=== PATIENT | female | born 1955 | race Two or more races ===

== ENCOUNTER → 2019-10-12 | Outpatient (CLI) | payer OTHER | END | disposition home or self-care (01) | LOC: LABWHC1 10:34 | PROVIDERS: ATTEND Internal Medicine | DX: N95.1 Menopausal and female climacteric states (principal); E55.9 Vitamin D deficiency, unspecified | CPT/HCPCS: 36415; 82306; 84140 ==

== ENCOUNTER → 2020-03-06 | Outpatient (CLI) | payer OTHER ==
--- NOTE | 2020-03-06 17:39 | ECHOF ---
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 MEASUREMENTS -------- HEIGHT: 160.0 cm WEIGHT: 56.7 kg BP: IVSd: 0.8 cm (0.6 - 1.1) LVIDd: 3.7 cm (3.9 - 5.3) LVPWd: 1.0 cm (0.6 - 1.1) EDV(Teich): 58 ml IVSs: 1.2 cm LVIDs: 2.2 cm LVPWs: 1.5 cm %IVS Thck: 46 % ESV(Teich): 17 ml EF(Teich): 71 % %FS: 39 % SV(Teich): 41 ml RVIDd: 3.1 cm (< 3.3) IVC: 18.22 mm LALs A4C: 4.0 cm LAAs A4C: 13.8 cm LAESV A-L A4C: 40 ml LAESV MOD A4C: 39 ml LALs A2C: 5.6 cm LAAs A2C: 15.4 cm LAESV A-L A2C: 36 ml LAESV MOD A2C: 33 ml LAESV(A-L): 45 ml LAESV Index (A-L): 28.23 ml/m Ao Diam: 2.9 cm (2.0 - 3.7) LA Diam: 2.9 cm (2.7 - 3.8) AV Cusp: 1.9 cm (1.5 - 2.6) EPSS: 0.3 cm AV Vmax: 1.38 m/s AV maxP.62 mmHg AR Vmax: 2.06 m/s AR maxP.01 mmHg AR PHT: 533 ms AR Dec Time: 1837 ms AR Dec [place]: 1.1 m/s TR Vmax: 1.53 m/s TR maxP.31 mmHg RAP: 5.00 mmHg RVSP: 14.31 mmHg MV EF SLOPE: 97.21 mm/s (70 - 150) MV EXCURSION: 14.97 mm (> 18.000) FINDINGS -------- This was a technically good study. The left ventricular size is normal. Left ventricular wall thickness is normal. Overall left vent ricular systolic function is normal with, an EF between 55 - 60 %. The right ventricle is normal in size. The left atrial size is normal. Normal LA size by volume 22+/-6 ml/m2. The right atrial size is normal. Interatrial and interventricular septum intact. Aortic valve is trileaflet and is mildly thickened. Trace to mild aortic regurgitation. Peak/mean gradient across the Aortic Valve is {AV maxPG} / {AV meanPG}. The mitral valve is normal. The mitral valve leaflets are mildly thickened. Mild mitral annular c alcification present. There is trace mitral regurgitation. The tricuspid valve appears structurally normal. Trace tricuspid regurgitation present. Right suzanne tricular systolic pressure is normal at < 35 mmHg. There is no pulmonic regurgitation present. The aortic root size is normal. Normal inferior vena cava with normal inspiratory collapse consistent with estimated right atrial pre ssure of 5 mmHg. There is no pericardial effusion. CONCLUSIONS -------- 1. The left ventricular size is normal. 2. Left ventricular wall thickness is normal. 3. Overall left ventricular systolic function is normal with, an EF between 55 - 60 %. 4. Aortic valve is trileaflet and is mildly thickened. 5. Trace to mild aortic regurgitation. 6. The mitral valve leaflets are mildly thickened. 7. Mild mitral annular calcification present. 8. There is trace mitral regurgitation. 9. Trace tricuspid regurgitation present. 10. There is no pericardial effusion. PIT SUPERVISOR: Marina Bunch RDCS
== END | disposition home or self-care (01) ==
LOC: RADECHMAIN 08:13
PROVIDERS: ATTEND Family Medicine
DX: I35.1 Nonrheumatic aortic (valve) insufficiency (principal); I05.8 Other rheumatic mitral valve diseases
CPT/HCPCS: 93306

== ENCOUNTER → 2020-04-05 | Outpatient (CLI) | payer OTHER ==
[2020-04-05 21:38] LABS: Chol/HDL Ratio 3.21; Cholesterol 231 mg/dL (0-200); Triglycerides <50.0 mg/dL (0.0-149.0)
== END | disposition home or self-care (01) ==
LOC: LABWHC1 11:12
PROVIDERS: ATTEND Internal Medicine
DX: E78.00 Pure hypercholesterolemia, unspecified (principal); N95.1 Menopausal and female climacteric states; E55.9 Vitamin D deficiency, unspecified
CPT/HCPCS: 36415; 80061; 82306; 83704; 84140

== ENCOUNTER → 2020-04-11 | Outpatient (CLI) | payer OTHER | END | disposition home or self-care (01) | LOC: LABWHC1 14:09 | PROVIDERS: ATTEND Internal Medicine | DX: E78.00 Pure hypercholesterolemia, unspecified (principal); N95.1 Menopausal and female climacteric states; E55.9 Vitamin D deficiency, unspecified | CPT/HCPCS: 36415; 83704 ==

== ENCOUNTER → 2021-03-06 | Outpatient (CLI) | payer MEDICARE, OTHER ==
[2021-03-06 23:11] LABS: Hemoglobin A1C 5.1 % (4.0-6.0)
[2021-03-07 17:22] LABS: Thyroid Peroxidase Antibodies 29.2 U/mL (0.0-60.0)
[2021-03-07 17:27] LABS: Insulin Level 2.6 mIU/mL (3.0-25.0)
[2021-03-07 17:55] LABS: T4, Free (Free Thyroxine) 1.1 ng/dL (0.80-1.80)
[2021-03-07 18:00] LABS: Ferritin 125.5 ng/mL (10.0-291.0)
[2021-03-07 18:09] LABS: African American GFR (CKD) 68.5 (60.0-200.0); Albumin 4.8 g/dL (3.80-4.90); Albumin/Globulin Ratio 2.09 (1.60-3.17); Anion Gap 7.7 mmol/L (4.00-12.00); C Reactive Protein, High Sens 0.47 mg/L (0.000-3.000); Calcium 9.9 mg/dL (8.7-10.3); Carbon Dioxide 28.3 mmol/L (21.6-31.8); Chol/HDL Ratio 3.85; Globulin 2.3 g/dL (1.6-3.3); LDL Cholesterol,Calculated 172.2 mg/dL (0.0-131.0); Non-African American GFR(CKD) 59.1 (60.0-200.0); Total Bilirubin 0.8 mg/dL (0.3-1.2); Total Protein 7.1 g/dL (6.2-8.2); VLDL Calculation 12.8 mg/dL (5.00-40.00)
== END | disposition home or self-care (01) ==
LOC: LABWHC1 15:02
PROVIDERS: ATTEND Obstetrics & Gynecology Obstetrics
DX: D64.9 Anemia, unspecified (principal); E34.9 Endocrine disorder, unspecified; R94.6 Abnormal results of thyroid function studies; E78.00 Pure hypercholesterolemia, unspecified; E03.9 Hypothyroidism, unspecified; E55.9 Vitamin D deficiency, unspecified; N95.1 Menopausal and female climacteric states; R73.09 Other abnormal glucose; E72.11 Homocystinuria; D51.9 Vitamin B12 deficiency anemia, unspecified
CPT/HCPCS: 36415; 80053; 80061; 82607; 82728; 83036; 83525; 84140; 84439; 84443; 84481; 84482; 86141; 86376

== ENCOUNTER → 2021-08-23 | Outpatient (CLI) | payer MEDICARE, OTHER ==
[2021-08-23 18:53] LABS: Basophils # (A) 0.06 X 10*3/uL (0.00-0.10); Basophils % (A) 1.7 %; Eosinophils # (A) 0.04 X 10*3/uL (0.04-0.35); Eosinophils % (A) 1.1 %; HCT 36.3 % (37.2-46.3); HGB 11.9 g/dL (12.0-15.0); Immature Grans, Automated 0.3 %; Lymphocytes % (A) 31.1 %; MCH 31.2 pg (27.0-32.0); MCHC 32.8 g/dL (32.0-37.0); MCV 95.3 fL (80.0-97.0); Mean Platelet Volume 9.4 fL (9.5-12.2); Monocytes # (A) 0.33 X 10*3/uL (0.20-1.00); Monocytes % (A) 9.3 %; NRBC Per 100 WBC 0 /100 WBCS (0.0-0.0); Neutrophils % (A) 56.5 %; Platelet Count 203 X 10*3/uL (140-440); RBC 3.81 X 10*6/uL (4.10-5.20); RDW 11.9 % (11.5-14.5); WBC 3.54 X 10*3/uL (4.50-10.00)
[2021-08-23 19:33] LABS: Thyroid Peroxidase Antibodies 13.3 U/mL (0.0-33.0)
[2021-08-23 19:43] LABS: C Reactive Protein, High Sens 0.82 mg/L (0.000-3.000); T4, Free (Free Thyroxine) 1.29 ng/dL (0.800-1.800)
[2021-08-23 19:47] LABS: African American GFR (CKD) 79.9 (60.0-200.0); Albumin 4.8 g/dL (3.8-4.9); Albumin/Globulin Ratio 2.24 (1.60-3.17); Anion Gap 14.1 mmol/L (10.00-18.00); BUN/Creat Ratio 21.59 Ratio (12.00-20.00); Calcium 9.7 mg/dL (8.7-10.3); Carbon Dioxide 23.5 mmol/L (20.0-27.5); Globulin 2.1 g/dL (1.6-3.3); HDL Cholesterol 67.1 mg/dL (40.00-60.00); Potassium 3.7 mmol/L (3.5-5.5); Total Bilirubin 0.5 mg/dL (0.30-1.20); Total Protein 6.9 g/dL (6.2-8.2); Triglycerides 47.9 mg/dL (0.00-149.00)
[2021-08-23 20:00] LABS: Chol/HDL Ratio 3.77 Ratio
[2021-08-25 09:07] LABS: Insulin Level 4.6 mIU/mL (3.0-25.0)
== END | disposition home or self-care (01) ==
LOC: LABWHC1 11:11
PROVIDERS: ATTEND Obstetrics & Gynecology Obstetrics
DX: E34.9 Endocrine disorder, unspecified (principal); R94.6 Abnormal results of thyroid function studies; E78.00 Pure hypercholesterolemia, unspecified; E03.9 Hypothyroidism, unspecified; E55.9 Vitamin D deficiency, unspecified; R73.09 Other abnormal glucose; D51.9 Vitamin B12 deficiency anemia, unspecified; D64.9 Anemia, unspecified; E72.11 Homocystinuria; N95.1 Menopausal and female climacteric states
CPT/HCPCS: 36415; 80053; 80061; 82306; 82607; 82728; 83036; 83090; 83525; 83721; 84140; 84439; 84443; 84481; 84482; 85025; 86141; 86376; 86800

== ENCOUNTER → 2022-03-24 | Outpatient (CLI) | payer MEDICARE, OTHER ==
[2022-03-24 14:47] LABS: C Reactive Protein, High Sens 0.436 mg/L (0.000-3.000); Thyroid Peroxidase Antibodies 11.2 U/mL (0.0-33.0)
[2022-03-24 16:05] LABS: Basophils # (A) 0.05 X 10*3/uL (0.00-0.10); Basophils % (A) 1.5 %; Eosinophils % (A) 3.1 %; HCT 35.1 % (37.2-46.3); HGB 11.7 g/dL (12.0-15.0); Immature Grans, Automated 0.3 %; Lymphocytes # (A) 0.93 X 10*3/uL (0.90-5.00); Lymphocytes % (A) 28.5 %; MCH 31.7 pg (27.0-32.0); MCHC 33.3 g/dL (32.0-37.0); MCV 95.1 fL (80.0-97.0); Monocytes # (A) 0.29 X 10*3/uL (0.20-1.00); Monocytes % (A) 8.9 %; NRBC Per 100 WBC 0 /100 WBCS (0.0-0.0); Neutrophils # (A) 1.88 X 10*3/uL (1.80-7.70); Neutrophils % (A) 57.7 %; Platelet Count 193 X 10*3/uL (140-440); RBC 3.69 X 10*6/uL (4.10-5.20); RDW 12.5 % (11.5-14.5); WBC 3.26 X 10*3/uL (4.50-10.00)
[2022-03-24 18:49] LABS: Insulin Level 1.9 mIU/mL (3.0-25.0)
== END | disposition home or self-care (01) ==
LOC: LABWHC1 10:07
PROVIDERS: ATTEND Obstetrics & Gynecology Obstetrics
DX: N95.1 Menopausal and female climacteric states (principal); R94.6 Abnormal results of thyroid function studies; E34.9 Endocrine disorder, unspecified; E03.9 Hypothyroidism, unspecified; E78.00 Pure hypercholesterolemia, unspecified; R73.09 Other abnormal glucose; E72.11 Homocystinuria; D64.9 Anemia, unspecified; D51.9 Vitamin B12 deficiency anemia, unspecified; E87.8 Other disorders of electrolyte and fluid balance, not elsewhere classified
CPT/HCPCS: 36415; 80053; 80061; 82607; 82728; 83036; 83090; 83525; 84140; 84432; 84439; 84443; 84481; 84482; 85025; 86141; 86376

== ENCOUNTER → 2022-03-26 | Outpatient (CLI) | payer MEDICARE, OTHER ==
[2022-03-26 16:00] LABS: LDL Cholesterol,Calculated 162.6 mg/dL (0.0-131.0); VLDL Calculation 11.06 mg/dL (5.00-40.00)
[2022-03-26 16:12] LABS: ALT 15 U/L (8-44); AST 15 U/L (13-35); African American GFR (CKD) 77.3 (60.0-200.0); Albumin 4.4 g/dL (3.8-4.9); Alkaline Phosphatase 71 U/L (41-126); BUN/Creat Ratio 19.02 Ratio (12.00-20.00); Blood Urea Nitrogen 17.1 mg/dL (9.0-27.0); Calcium 9.6 mg/dL (8.7-10.3); Carbon Dioxide 28.5 mmol/L (20.0-27.5); Chloride 103 mmol/L (96-109); Globulin 2.2 g/dL (1.6-3.3); Glucose 96 mg/dL (70-110); Non-African American GFR(CKD) 66.7 (60.0-200.0); Potassium 3.9 mmol/L (3.5-5.5); Sodium 142 mmol/L (135-145); Total Protein 6.6 g/dL (6.2-8.2)
== END | disposition home or self-care (01) ==
LOC: LABWHC1 09:33
PROVIDERS: ATTEND Obstetrics & Gynecology Obstetrics
DX: R94.6 Abnormal results of thyroid function studies (principal); E34.9 Endocrine disorder, unspecified; E03.9 Hypothyroidism, unspecified; E78.00 Pure hypercholesterolemia, unspecified; R73.09 Other abnormal glucose; E72.11 Homocystinuria; D64.9 Anemia, unspecified; D51.9 Vitamin B12 deficiency anemia, unspecified
CPT/HCPCS: 80053; 80061; 82607; 82728; 84481

== ENCOUNTER 2022-07-02 15:20 | Emergency (ER) | payer MEDICARE, OTHER ==
[2022-07-02 15:33] VITALS: TEMP 98.2
--- NOTE | 2022-07-02 15:39 | ED ---
General Adult HPI - General Source: patient Mode of arrival: ambulatory - History of Present Illness -: days(s) (4) Location: chest Severity scale (1-10): 3 Consistency: constant Treatments Prior to Arrival: none <Woodrow Barnard - Last Filed: 07/02/22 15:35> <Linda Lambert - Last Filed: 07/03/22 00:24> - General Chief complaint: Chest Pain Stated complaint: Chest Pain Time Seen by Provider: 07/02/22 15:30 - History of Present Illness Initial comments: 67-year-old female presents ambulatory with family complaining of cough with thick sputum since Thursday. Denies any fevers but did feel chilled. also had similar symptoms. She states that she was choking on Thursday on the thick phlegm, had two episodes of choking on water on Thursday and again last night. She is a nonsmoker, no medical history. She states that she does not want testing for viral illnesses unless done by blood work. (Woodrow Barnard) - Related Data Allergies Allergy/AdvReac Type Severity Reaction Status Date / Time azithromycin Allergy Nausea & Verified 07/02/22 15:34 Vomiting & Diarrhea sulfamethoxazole Allergy Rash/Hives Verified 07/02/22 15:34 [From Febra] trimethoprim [From Febra] Allergy Rash/Hives Verified 07/02/22 15:34 Review of Systems ROS Other: All systems not noted in ROS Statement are negative. <Woodrow Barnard - Last Filed: 07/02/22 15:35> ROS Other: All systems not noted in ROS Statement are negative. <Linda Lambert - Last Filed: 07/03/22 00:24> ROS Statement: Those systems with pertinent positive or pertinent negative responses have been documented in the HPI. Past Medical History Past Medical History: No Reported History History of Any Multi-Drug Resistant Organisms: None Reported Past Surgical History: No Surgical Hx Reported Past Psychological History: No Psychological Hx Reported Smoking Status: Never smoker Past Alcohol Use History: None Reported, Occasional Past Drug Use History: None Reported <Woodrow Barnard - Last Filed: 07/02/22 15:35> General Exam General appearance: alert, in no apparent distress Eye exam: Present: normal appearance, PERRL, EOMI. Absent: scleral icterus, conjunctival injection, periorbital swelling Respiratory exam: Present: normal lung sounds bilaterally, chest wall tenderness (generalized ). Absent: respiratory distress, wheezes, rales, rhonchi, stridor Cardiovascular Exam: Present: regular rate, normal rhythm, normal heart sounds. Absent: systolic murmur, diastolic murmur, rubs, gallop, clicks GI/Abdominal exam: Present: soft, normal bowel sounds. Absent: distended, tenderness, guarding, rebound, rigid Extremities exam: Present: normal inspection Neurological exam: Present: alert, oriented X3, CN II-XII intact Psychiatric exam: Present: normal affect, normal mood Skin exam: Present: warm, dry, intact, normal color. Absent: rash <Linda Lambert - Last Filed: 07/03/22 00:24> Course Vital Signs 07/02/22 07/02/22 15:26 19:43 Temperature 98.2 F Pulse Rate 65 57 L Respiratory 16 18 Rate Blood Pressure 128/80 105/60 O2 Sat by Pulse 100 100 Oximetry Medical Decision Making - Lab Data Result diagrams: 07/02/22 18:10 07/02/22 18:10 <Linda Lambert - Last Filed: 07/03/22 00:24> - Medical Decision Making Was pt. sent in by a medical professional or institution (OLMAN Briggs, NURSE TECH, urgent care, hospital, or retirement...) When possible be specific @ -[No] Did you speak to anyone other than the patient for history (EMS, parent, family, police, friend...)? What history was obtained from this source @ -[No] Did you review nursing and triage notes (agree or disagree)? Why? @ -[I reviewed and agree with nursing and triage notes] Were old charts reviewed (outside hosp., previous admission, EMS record, old EKG, old radiological studies, urgent care reports/EKG's, retirement records)? Report findings @ -[No old charts were reviewed] Differential Diagnosis (chest pain, altered mental status, abdominal pain women, abdominal pain men, vaginal bleeding, weakness, fever, dyspnea, syncope, heada tim, dizziness, GI bleed, back pain, seizure, CVA, palpatations, mental health)? @ Differential Chest Pain: Stable Angina, Unstable Angina, STEMI, NSTEMI Aortic Dissection, Pneumothorax, Musculoskeletal, Esophageal Spasm GERD, Cholecystitis, Pancreatitis, Zoster, this is not meant to be an all-inclusive list. EKG interpreted by me (3pts min.). @ Yes, sinus rhythm without ST segment or T-wave changes. Vent rate 61, MA in terval 180, QRS duration 86, QTc 395 X-rays interpreted by me (1pt min.). @ Yes, chest xray shows no acute process. There is a large calcified granuloma of the right upper lobe which patient is already aware of CT interpreted by me (1pt min.). @ -[None done] U/S interpreted by me (1pt. min.). @ -[None done] What testing was considered but not performed or refused? (CT, X-rays, U/S, labs)? Why? @ -[None] What meds were considered but not given or refused? Why? @ -[None] Did you discuss the management of the patient with other professionals (professionals i.e. , PA, NURSE TECH, lab, RT, psych nurse, renal social worker, epitaxial reactor technician, teacher, chief juvenile probation officer, case finisher)? Give summary @ -[No] Was smoking cessation discussed for >3mins.? @ -[No] Was critical care preformed (if so, how long)? @ -[No] Were there social determinants of health that impacted care today? How? (Homelessness, low income, unemployed, alcoholism, drug addiction, transportation, low edu. Level, literacy, decrease access to med. care, senior living, rehab)? @ -[No] Was there de-escalation of care discussed even if they declined (Discuss DNR or withdrawal of care, Hospice)? DNR status @ -[No] What co-morbidities impacted this encounter? (DM, HTN, Smoking, COPD, CAD, Cancer, CVA, ARF, Chemo, Hep., AIDS, mental health diagnosis, sleep apnea, morbid obesity)? @ -[None] Was patient admitted / discharged? Hospital course, mention meds given and route, prescriptions, significant lab abnormalities, going to OR and other pertinent info. @ -This is a 67-year-old presenting with chest discomfort. Patient has generalized chest wall tenderness. Only has pain with coughing. No shortness of breath. Afebrile. COVID-19 is detected. No evidence of acute ischemia on EKG. Troponin is within normal limits. Patient has few risk factors for ACS. Suspect chest pain related to non cardiac etiology-likely consistent coughing. Patient offered pain medication and Tessalon Perles but declined. States cough is improving. She will be discharged. Undiagnosed new problem with uncertain prognosis? @ -[No] Drug Therapy requiring intensive monitoring for toxicity (Heparin, Nitro, Insulin, Cardizem)? @ -[No] Were any procedures done? @ -[No] Diagnosis/symptom? @ chest discomfort Acute, or Chronic, or Acute on Chronic? @ acute Uncomplicated (without systemic symptoms) or Complicated (systemic symptoms)? @ uncomplicated Side effects of treatment? @ -[No] Exacerbation, Progression, or Severe Exacerbation? @ -[No] Poses a threat to life or bodily function? How? (Chest pain, USA, [place], pneumonia, PE, COPD, DKA, ARF, appy, cholecystitis, CVA, Diverticulitis, Homicidal, Suicidal, threat to staff... and all critical care pts) @ -[No] Diagnosis/symptom? @ -covid-19 Acute, or Chronic, or Acute on Chronic? @ -acute Uncomplicated (without systemic symptoms) or Complicated (systemic symptoms)? @ -uncomplicated Side effects of treatment? @ -[none] Exacerbation, Progression, or Severe Exacerbation] @ -[no] Poses a threat to life or bodily function? @ -[no] Dr. Crawford is my attending. (Linda Lambert) - Lab Data Lab Results 07/02/22 07/02/22 07/02/22 Range/Units 18:10 18:10 18:10 WBC 5.4 (3.8-10.6) k/uL RBC 3.91 (3.80-5.40) m/uL Hgb 12.2 (11.4-16.0) gm/dL Hct 36.1 (34.0-46.0) % MCV 92.4 (80.0-100.0) fL MCH 31.2 (25.0-35.0) pg MCHC 33.8 (31.0-37.0) g/dL RDW 12.8 (11.5-15.5) % Plt Count 310 (150-450) k/uL MPV 7.4 Neutrophils % 70 % Lymphocytes % 20 % Monocytes % 6 % Eosinophils % 1 % Basophils % 1 % Neutrophils # 3.8 (1.3-7.7) k/uL Lymphocytes # 1.1 (1.0-4.8) k/uL Monocytes # 0.3 (0-1.0) k/uL Eosinophils # 0.1 (0-0.7) k/uL Basophils # 0.0 (0-0.2) k/uL PT 10.5 (9.0-12.0) sec INR 1.0 (<1.2) APTT 24.7 (22.0-30.0) sec Sodium 141 (137-145) mmol/L Potassium 4.1 (3.5-5.1) mmol/L Chloride 105 (98-107) mmol/L Carbon Dioxide 28 (22-30) mmol/L Anion Gap 8 mmol/L BUN 13 (7-17) mg/dL Creatinine 0.76 (0.52-1.04) mg/dL Est GFR (CKD-EPI)AfAm >90 (>60 ml/min/1.73 sqM) Est GFR (CKD-EPI)NonAf 83 (>60 ml/min/1.73 sqM) Glucose 88 (74-99) mg/dL Calcium 9.4 (8.4-10.2) mg/dL Magnesium 2.3 (1.6-2.3) mg/dL Total Bilirubin 0.4 (0.2-1.3) mg/dL AST 23 (14-36) U/L ALT 18 (4-34) U/L Alkaline Phosphatase 64 (38-126) U/L Troponin I (0.000-0.034) ng/mL Total Protein 6.8 (6.3-8.2) g/dL Albumin 4.1 (3.5-5.0) g/dL Influenza Type A (PCR) (Not Detectd) Influenza Type B (PCR) (Not Detectd) RSV (PCR) (Not Detectd) SARS-CoV-2 (PCR) (Not Detectd) 07/02/22 07/02/22 Range/Units 18:10 18:19 WBC (3.8-10.6) k/uL RBC (3.80-5.40) m/uL Hgb (11.4-16.0) gm/dL Hct (34.0-46.0) % MCV (80.0-100.0) fL MCH (25.0-35.0) pg MCHC (31.0-37.0) g/dL RDW (11.5-15.5) % Plt Count (150-450) k/uL MPV Neutrophils % % Lymphocytes % % Monocytes % % Eosinophils % % Basophils % % Neutrophils # (1.3-7.7) k/uL Lymphocytes # (1.0-4.8) k/uL Monocytes # (0-1.0) k/uL Eosinophils # (0-0.7) k/uL Basophils # (0-0.2) k/uL PT (9.0-12.0) sec INR (<1.2) APTT (22.0-30.0) sec Sodium (137-145) mmol/L Potassium (3.5-5.1) mmol/L Chloride (98-107) mmol/L Carbon Dioxide (22-30) mmol/L Anion Gap mmol/L BUN (7-17) mg/dL Creatinine (0.52-1.04) mg/dL Est GFR (CKD-EPI)AfAm (>60 ml/min/1.73 sqM) Est GFR (CKD-EPI)NonAf (>60 ml/min/1.73 sqM) Glucose (74-99) mg/dL Calcium (8.4-10.2) mg/dL Magnesium (1.6-2.3) mg/dL Total Bilirubin (0.2-1.3) mg/dL AST (14-36) U/L ALT (4-34) U/L Alkaline Phosphatase (38-126) U/L Troponin I <0.012 (0.000-0.034) ng/mL Total Protein (6.3-8.2) g/dL Albumin (3.5-5.0) g/dL Influenza Type A (PCR) Not Detected (Not Detectd) Influenza Type B (PCR) Not Detected (Not Detectd) RSV (PCR) Not Detected (Not Detectd) SARS-CoV-2 (PCR) Detected A (Not Detectd) Disposition <Woodrow Barnard - Last Filed: 07/02/22 15:35> Is patient prescribed a controlled substance at d/c from ED?: No <Linda Lambert - Last Filed: 07/03/22 00:24> Clinical Impression: COVID-19, Cough, Chest discomfort Disposition: HOME SELF-CARE Condition: Good Instructions (If sedation given, give patient instructions): Coronavirus Diseas e 2019 (COVID-19), Chest Pain (ED) Additional Instructions: Follow up with care provider in one to 2 days. Return to the emergency department if you experience new, concerning, or worsening symptoms. Referrals: Marcelino Guerrero DO [Primary Care Provider] - 1-2 days
--- NOTE | 2022-07-02 15:52 | XR ---
EXAMINATION TYPE: XR chest 2V DATE OF EXAM: 07/02/2022 COMPARISON: NONE TECHNIQUE: PA and lateral views submitted. HISTORY: Cough FINDINGS: The lungs are clear and there is no pneumothorax, pleural effusion, or focal pneumonia. Heart size normal and no overt failure. Osseous structures demonstrate hypertrophic and degenerative changes of the spine. Large calcified granuloma right upper lobe. Hyperinflation suggests COPD. Hypertrophic and degenerative changes of the spine. Additional tiny granuloma measuring 3 to 4 mm adjacent to left he art cord suspected. IMPRESSION: 1. No acute process. Correlate for asthma or mild COPD. 2. Large calcified granuloma right upper lobe.
[2022-07-02] MEDS ORDERED: SODIUM CHLORIDE 0.9% 1,000 ML IV STA (18:07)
[2022-07-02 18:33] LABS: Basophils % (A) 1 %; Eosinophils # (A) 0.1 k/uL (0-0.7); Eosinophils % (A) 1 %; HCT 36.1 % (34.0-46.0); HGB 12.2 gm/dL (11.4-16.0); Lymphocytes # (A) 1.1 k/uL (1.0-4.8); Lymphocytes % (A) 20 %; MCH 31.2 pg (25.0-35.0); MCHC 33.8 g/dL (31.0-37.0); MCV 92.4 fL (80.0-100.0); Mean Platelet Volume 7.4; Monocytes # (A) 0.3 k/uL (0-1.0); Monocytes % (A) 6 %; Neutrophils # (A) 3.8 k/uL (1.3-7.7); Neutrophils % (A) 70 %; Platelet Count 310 k/uL (150-450); RBC 3.91 m/uL (3.80-5.40); RDW 12.8 % (11.5-15.5); WBC 5.4 k/uL (3.8-10.6)
[2022-07-02 18:39] LABS: Partial Thromboplastin Time 24.7 sec (22.0-30.0); Prothrombin Time 10.5 sec (9.0-12.0)
[2022-07-02 18:45] LABS: ALT 18 U/L (4-34); AST 23 U/L (14-36); African American GFR (CKD) >90 (>60 ml/min/1.73 sqM); Albumin 4.1 g/dL (3.5-5.0); Alkaline Phosphatase 64 U/L (38-126); Anion Gap 8 mmol/L; Blood Urea Nitrogen 13 mg/dL (7-17); Calcium 9.4 mg/dL (8.4-10.2); Carbon Dioxide 28 mmol/L (22-30); Chloride 105 mmol/L (98-107); Glucose 88 mg/dL (74-99); Magnesium 2.3 mg/dL (1.6-2.3); Non-African American GFR(CKD) 83 (>60 ml/min/1.73 sqM); Potassium 4.1 mmol/L (3.5-5.1); Sodium 141 mmol/L (137-145); Total Bilirubin 0.4 mg/dL (0.2-1.3); Total Protein 6.8 g/dL (6.3-8.2)
[2022-07-02 19:45] VITALS: BP 105/60; PULSE 57; RESP 18
== END 2022-07-02 20:11 | disposition home or self-care (01) ==
LOC: EC 15:20
DX: U07.1 COVID-19 (principal); Z88.1 Allergy status to other antibiotic agents; Z88.2 Allergy status to sulfonamides
CPT/HCPCS: 36415; 71046; 80053; 83735; 84484; 85025; 85610; 85730; 87636; 93005; 96360; 99285

== ENCOUNTER → 2022-09-04 | Outpatient (CLI) | payer MEDICARE ==
[2022-09-04 15:03] LABS: Basophils # (A) 0.05 X 10*3/uL (0.00-0.10); Basophils % (A) 1.3 %; Eosinophils # (A) 0.07 X 10*3/uL (0.04-0.35); Eosinophils % (A) 1.8 %; HCT 37.8 % (37.2-46.3); HGB 12.6 g/dL (12.0-15.0); Immature Grans, Automated 0.3 %; Lymphocytes # (A) 0.82 X 10*3/uL (0.90-5.00); Lymphocytes % (A) 21.4 %; MCH 31.3 pg (27.0-32.0); MCHC 33.3 g/dL (32.0-37.0); MCV 93.8 fL (80.0-97.0); Mean Platelet Volume 9.3 fL (9.5-12.2); Monocytes # (A) 0.38 X 10*3/uL (0.20-1.00); Monocytes % (A) 9.9 %; NRBC Per 100 WBC 0 /100 WBCS (0.0-0.0); Neutrophils % (A) 65.3 %; Platelet Count 228 X 10*3/uL (140-440); RBC 4.03 X 10*6/uL (4.10-5.20); WBC 3.83 X 10*3/uL (4.50-10.00)
[2022-09-04 16:42] LABS: Homocysteine 9.67 umol/L (4.00-14.00); Thyroid Peroxidase Antibodies 13.4 U/mL (0.0-33.0)
[2022-09-04 16:49] LABS: ALT 21 U/L (8-44); AST 20 U/L (13-35); African American GFR (CKD) 80.8 (60.0-200.0); Albumin 4.4 g/dL (3.8-4.9); Albumin/Globulin Ratio 1.94 (1.60-3.17); Alkaline Phosphatase 63 U/L (41-126); BUN/Creat Ratio 18.69 Ratio (12.00-20.00); Blood Urea Nitrogen 16.2 mg/dL (9.0-27.0); C Reactive Protein <0.30 mg/dL (0.00-0.80); Calcium 9.8 mg/dL (8.7-10.3); Carbon Dioxide 27.3 mmol/L (20.0-27.5); Chloride 102 mmol/L (96-109); Chol/HDL Ratio 4.03 Ratio; Globulin 2.3 g/dL (1.6-3.3); Glucose 87 mg/dL (70-110); LDL Cholesterol,Calculated 185.6 mg/dL (0.0-131.0); Non-African American GFR(CKD) 69.7 (60.0-200.0); Potassium 4.1 mmol/L (3.5-5.5); Sodium 140 mmol/L (135-145); Total Protein 6.7 g/dL (6.2-8.2); VLDL Calculation 9.86 mg/dL (5.00-40.00)
[2022-09-04 17:30] LABS: Insulin Level 2.9 mIU/mL (3.0-25.0)
== END | disposition home or self-care (01) ==
LOC: LABWHC1 08:35
PROVIDERS: ATTEND Obstetrics & Gynecology Obstetrics
DX: E55.9 Vitamin D deficiency, unspecified (principal); E72.11 Homocystinuria; E87.8 Other disorders of electrolyte and fluid balance, not elsewhere classified; D64.9 Anemia, unspecified; E06.3 Autoimmune thyroiditis; E78.2 Mixed hyperlipidemia; N95.1 Menopausal and female climacteric states; D51.8 Other vitamin B12 deficiency anemias; R94.6 Abnormal results of thyroid function studies; R73.09 Other abnormal glucose
CPT/HCPCS: 36415; 80053; 80061; 82306; 82607; 82728; 83036; 83090; 83525; 84140; 84439; 84443; 84480; 84482; 85025; 86140; 86376; 86800

== ENCOUNTER → 2024-05-20 | Outpatient (CLI) | payer MEDICARE, OTHER ==
--- NOTE | 2024-05-20 11:45 | BD ---
EXAMINATION TYPE: Axial Bone Density DATE OF EXAM: 05/20/2024 CLINICAL HISTORY: 69 years old Female. ICD-10 CODE: Z78.0 ASYMPTOMATIC MENOPAUSAL STATE , Additional History: Height: 63.25 Weight: 137 FRAX RISK QUESTIONS: Family History (Parent hip fracture): no History of Fracture in Adulthood: no Secondary Osteoporosis: no RISK FACTORS HISTORY OF: Surgery to Spine/Hip(right/left)/Wrist (right/left): no MEDICATIONS: Thyroid Medications: no Osteoporosis Medications: no EXAM MEASUREMENTS: Bone mineral densitometry was performed using the Torbit System. Bone mineral density as measured about the Lumbar spine is: ----- L1-L4(G/cm2): 0.915 T Score Values are as follows: ----- L1: -3.1 ----- L2: -2.7 ----- L3: -1.9 ----- L4: -1.4 ----- L1-L4: -2.2 Z Score Values are as follows: ----- L1: -1.4 ----- L2: -1.0 ----- L3: -0.2 ----- L4: 0.3 ----- L1-L4: -0.5 Bone mineral density baseline Bone mineral density about the R hip (g/cm2): 0.757 Bone mineral density about the L hip (g/cm2): 0.777 T Score values are as follows: -----R Neck: -2.1 -----L Neck: -2.0 -----R Total: -1.9 -----L Total: -1.8 Z Score values are as follows: -----R Neck: -0.4 -----L Neck: -0.4 -----R Total: -0.5 -----L Total: -0.4 Bone mineral density baseline FRAX%s: The graph provided illustrates a 11.9% chance for a major osteoporotic fx and a 2.3% chance f or the hips probability for fx in 10 years time. IMPRESSION: Osteopenia (T Score between -2.5 and -1). There is slightly increased risk of fracture and the patient may be considered for treatment. Re-Screen 2-5 years. NOTE: T-SCORE=SD OF THE YOUNG ADULT MEAN. [facility], , 05/20/2024 11:43 AM
== END | disposition home or self-care (01) ==
LOC: RADBDWWP 09:06
PROVIDERS: ATTEND Internal Medicine
DX: Z13.820 Encounter for screening for osteoporosis (principal); Z78.0 Asymptomatic menopausal state; M85.89 Other specified disorders of bone density and structure, multiple sites
CPT/HCPCS: 77080

== ENCOUNTER → 2024-06-13 | Outpatient (CLI) | payer MEDICARE ==
[2024-06-13 19:32] LABS: Basophils # (A) 0.07 X 10*3/uL (0.00-0.10); Basophils % (A) 1.6 %; Eosinophils # (A) 0.08 X 10*3/uL (0.04-0.35); Eosinophils % (A) 1.9 %; HCT 36.2 % (37.2-46.3); Lymphocytes # (A) 0.99 X 10*3/uL (0.90-5.00); Lymphocytes % (A) 23.2 %; MCH 31.1 pg (27.0-32.0); MCHC 33.1 g/dL (32.0-37.0); MCV 93.8 FL (80.0-97.0); Mean Platelet Volume 9.2 FL (9.5-12.2); Monocytes # (A) 0.45 X 10*3/uL (0.20-1.00); Monocytes % (A) 10.5 %; NRBC Per 100 WBC 0 X 10*3/uL (0.00-0.01); Neutrophils # (A) 2.67 X 10*3/uL (1.80-7.70); Neutrophils % (A) 62.6 %; Platelet Count 240 X 10*3/uL (140-440); RBC 3.86 X 10*6/uL (4.10-5.20); RDW 12.6 % (11.5-14.5); WBC 4.27 X 10*3/uL (4.50-10.00)
[2024-06-13 19:46] LABS: Erythrocyte Sedimentation Rate 10 mm/Hr (0-30)
== END | disposition home or self-care (01) ==
LOC: LABWHC1 12:28
PROVIDERS: ATTEND Ophthalmology
DX: H47.011 Ischemic optic neuropathy, right eye (principal)
CPT/HCPCS: 36415; 85025; 85652; 86140

== ENCOUNTER 2024-08-24 18:58 | Observation (INO) | payer MEDICARE ==
--- NOTE | 2024-08-24 19:38 | ED ---
Chest Pain HPI - General Chief Complaint: Chest Pain Stated Complaint: chest pain Time Seen by Provider: 08/24/24 19:06 Source: patient, RN notes reviewed Mode of arrival: ambulatory Limitations: no limitations - History of Present Illness Initial Comments: 69-year-old female presents emergency department chief complaint of intermittent lower chest epigastric discomfort. Patient states that started around 530 this afternoon. Patient states she did have some symptoms yesterday also. He states is intermittent sharp stabbing pain states she does have pain towards her back right shoulder denies any significant nausea vomiting no fevers. Patient states that she has no prior cardiac disease does have a history of hyperlipidemia on no medications no history of hypertension diabetes. - Related Data Allergies Allergy/AdvReac Type Severity Reaction Status Date / Time azithromycin Allergy Nausea & Verified 08/24/24 19:17 Vomiting & Diarrhea sulfamethoxazole Allergy Rash/Hives Verified 08/24/24 19:17 [From ] trimethoprim [From ] Allergy Rash/Hives Verified 08/24/24 19:17 Review of Systems ROS Statement: Those systems with pertinent positive or pertinent negative responses have been documented in the HPI. ROS Other: All systems not noted in ROS Statement are negative. EKG Findings - EKG Comments: EKG Findings:: EKG performed at 19: 39 sinus bradycardia with a rate of 54 AK 211 QRS 91 QT/QTc 408/393. Repeat EKG performed at 22: 54 sinus bradycardia rate of 53 [place] 181 QRS 97 QT/QTc 420/402 no significant changes from prior EKG - EKG Results: EKG: interpreted by ERMD Past Medical History Past Medical History: Hyperlipidemia History of Any Multi-Drug Resistant Organisms: None Reported Past Surgical History: No Surgical Hx Reported Past Psychological History: No Psychological Hx Reported Smoking Status: Never smoker Past Alcohol Use History: Rare Past Drug Use History: None Reported General Exam Limitations: no limitations General appearance: alert, in no apparent distress Head exam: Present: atraumatic, normocephalic, normal inspection Eye exam: Present: normal appearance, PERRL, EOMI. Absent: scleral icterus, conjunctival injection, periorbital swelling ENT exam: Present: normal exam, normal oropharynx, mucous membranes moist Neck exam: Present: normal inspection, full ROM. Absent: tenderness, meningismus, lymphadenopathy Respiratory exam: Present: normal lung sounds bilaterally, chest wall tenderness. Absent: respiratory distress, wheezes, rales, rhonchi, stridor Cardiovascular Exam: Present: regular rate, normal rhythm, normal heart sounds. Absent: systolic murmur, diastolic murmur, rubs, gallop, clicks GI/Abdominal exam: Present: soft, normal bowel sounds. Absent: distended, tenderness, guarding, rebound, rigid Course Vital Signs 08/24/24 19:12 Temperature 97.8 F Pulse Rate 60 Respiratory 18 Rate Blood Pressure 151/78 O2 Sat by Pulse 97 Oximetry Chest Pain MDM - MDM Was pt. sent in by a medical professional or institution (, PA, WASHING MACHINE STRIPER, urgent care, hospital, or halfway...) When possible be specific @ -No Did you speak to anyone other than the patient for history (EMS, parent, family, police, friend...)? What history was obtained from this source @ -No Did you review nursing and triage notes (agree or disagree)? Why? @ -I reviewed and agree with nursing and triage notes Were old charts reviewed (outside hosp., previous admission, EMS record, old EKG, old radiological studies, urgent care reports/EKG's, halfway records)? Report findings @ -No old charts were reviewed Differential Diagnosis (chest pain, altered mental status, abdominal pain women, abdominal pain men, vaginal bleeding, weakness, fever, dyspnea, syncope, headache, dizziness, GI bleed, back pain, seizure, CVA, palpatations, mental health, musculoskeletal)? @ -Differential Chest Pain: Stable Angina, Unstable Angina, STEMI, NSTEMI Aortic Dissection, Pneumothorax, Musculoskeletal, Esophageal Spasm GERD, Cholecystitis, Pancreatitis, Zoster, this is not meant to be an all-inclusive list. EKG interpreted by me (3pts min.). @ -As above X-rays interpreted by me (1pt min.). @ -Chest x-ray shows no acute cardiopulmonary process CT interpreted by me (1pt min.). @ -None done U/S interpreted by me (1pt. min.). @ -Ultrasound gallbladder no evidence of cholelithiasis or acute cholecystitis What testing was considered but not performed or refused? (CT, X-rays, U/S, labs)? Why? @ -None What meds were considered but not given or refused? Why? @ -None Did you discuss the management of the patient with other professionals (professionals i.e. , PA, WASHING MACHINE STRIPER, lab, RT, psych nurse, social scientist, senior telecommunications specialist, teacher, field artillery officer, rn case management)? Give summary @ -Dr. Liriano for admission for chest pain rule out Was smoking cessation discussed for >3mins.? @ -No Was critical care preformed (if so, how long)? @ -No Were there social determinants of health that impacted care today? How? (Homelessness, low income, unemployed, alcoholism, drug addiction, transportation, low edu. Level, literacy, decrease access to med. care, usp, rehab)? @ -No Was there de-escalation of care discussed even if they declined (Discuss DNR or withdrawal of care, Hospice)? DNR status @ -No What co-morbidities impacted this encounter? (DM, HTN, Smoking, COPD, CAD, Cancer, CVA, ARF, Chemo, Hep., AIDS, mental health diagnosis, sleep apnea, morbid obesity)? @ -Hyperlipidemia Was patient admitted / discharged? Hospital course, mention meds given and route, prescriptions, significant lab abnormalities, going to OR and other pertinent info. @ -Admitted patient presented for anterior chest pain patient is initial troponin 0.03. Patient does have subtle EKG changes. Patient is currently symptom-free. Patient given aspirin. Patient be admitted for cardiac rule out. Patient negative gallbladder ultrasound which was patient's concern. Undiagnosed new problem with uncertain prognosis? @ -No Drug Therapy requiring intensive monitoring for toxicity (Heparin, Nitro, Insulin, Cardizem)? @ -No Were any procedures done? @ -No Diagnosis/symptom? @ -Chest pain Acute, or Chronic, or Acute on Chronic? @ -Acute Uncomplicated (without systemic symptoms) or Complicated (systemic symptoms)? @ -Complicated Side effects of treatment? @ -No Exacerbation, Progression, or Severe Exacerbation? @ -No Poses a threat to life or bodily function? How? (Chest pain, [place], [place], pneumonia, PE, COPD, DKA, ARF, appy, cholecystitis, CVA, Diverticulitis, Homicidal, Suicidal, threat to staff... and all critical care pts) @ -Yes possible ACS risk to cardiac function Disposition Clinical Impression: Chest pain Disposition: ADMITTED IP TO THIS HOSP Condition: Fair Referrals: Brown Garcia DO [Primary Care Provider] - 1-2 days Time of Disposition: 23:19
--- NOTE | 2024-08-24 20:03 | XR ---
EXAMINATION TYPE: XR chest 2V DATE OF EXAM: 08/24/2024 7:49 PM COMPARISON: Chest radiographs from 07/02/2022 CLINICAL INDICATION: Female, 69 years old with history of Chest Pain; [facility] TECHNIQUE: XR chest 2V Frontal and lateral views of the chest. FINDINGS: Lungs/Pleura: Right upper lobe calcified granuloma stable back to 2022.. There is no evidence of pleu ral effusion, focal consolidation, or pneumothorax. Pulmonary vascularity: Unremarkable. Heart/mediastinum: Cardiomediastinal silhouette is unremarkable. Musculoskeletal: No acute osseous pathology. Other findings: None IMPRESSION: No acute cardiopulmonary disease/process. [facility], , 08/24/2024 8:00 PM
[2024-08-24 20:42] LABS: ALT 23 U/L (4-34); African American GFR (CKD) >90 (>60 ml/min/1.73 sqM); Albumin 4.5 g/dL (3.5-5.0); Anion Gap 9 mmol/L; Blood Urea Nitrogen 19 mg/dL (7-17); Calcium 9.3 mg/dL (8.4-10.2); Carbon Dioxide 27 mmol/L (22-30); Chloride 101 mmol/L (98-107); Glucose 75 mg/dL (74-99); Magnesium 2.1 mg/dL (1.6-2.3); Non-African American GFR(CKD) >90 (>60 ml/min/1.73 sqM); Sodium 137 mmol/L (137-145); Total Bilirubin 1.2 mg/dL (0.2-1.3); Total Protein 7.2 g/dL (6.3-8.2)
[2024-08-24 20:44] LABS: AST 37 U/L (14-36); Alkaline Phosphatase 57 U/L (38-126); Potassium 4.4 mmol/L (3.5-5.1)
[2024-08-24 20:51] LABS: NT-Pro-B-Type Natriuretic Pept 305 pg/mL
[2024-08-24 21:06] LABS: Partial Thromboplastin Time 22.2 sec (22.0-30.0); Prothrombin Time 11.1 sec (10.0-12.5)
--- NOTE | 2024-08-24 21:45 | US ---
EXAMINATION TYPE: US gallbladder DATE OF EXAM: 08/24/2024 COMPARISON: NONE CLINICAL INDICATION: Female, 69 years old with history of pain; patient states pain in the epigastric region TECHNIQUE: Grayscale and color Doppler imaging of the right upper quadrant was performed. FINDINGS: EXAM MEASUREMENTS: Liver Length: 13.5 cm Gallbladder Wall: 0.2 cm CBD: 0.4 cm Right Kidney: 9.5 x 4.0 x 4.6 cm COMPUTER EDUCATION PROFESSOR NOTES: Pancreas: wnl Liver: wnl Gallbladder: wnl Evidence for sonographic Rodriguez's sign: No CBD: wnl Right Kidney: No hydronephrosis or masses seen IMPRESSION: 1. No evidence for acute process. 2. Scattered simple appearing hepatic cyst. [facility], , 08/24/2024 9:43 PM
[2024-08-24 22:33] LABS: Basophils % (A) 1 %; Eosinophils # (A) 0.2 k/uL (0-0.7); Eosinophils % (A) 4 %; HCT 36.2 % (34.0-46.0); HGB 11.8 gm/dL (11.4-16.0); Lymphocytes # (A) 1.2 k/uL (1.0-4.8); Lymphocytes % (A) 30 %; MCH 30.7 pg (25.0-35.0); MCHC 32.7 g/dL (31.0-37.0); MCV 93.8 fL (80.0-100.0); Mean Platelet Volume 7.5; Monocytes # (A) 0.3 k/uL (0-1.0); Monocytes % (A) 7 %; Neutrophils # (A) 2.2 k/uL (1.3-7.7); Neutrophils % (A) 57 %; Platelet Count 224 k/uL (150-450); RBC 3.85 m/uL (3.80-5.40); WBC 3.9 k/uL (3.8-10.6)
[2024-08-24] MEDS ORDERED: NITROGLYCERIN SL TABS 0.4 MG TAB SUBLINGUAL PRN (23:18)
[2024-08-24] MEDS: ASPIRIN 81 MG PO STA (23:51)
[2024-08-25] MEDS ORDERED: CALCIUM CARBONATE 500 MG CHEWABLE PO PRN (02:04)
--- NOTE | 2024-08-25 02:07 | P.HPIM ---
History of Present Illness H&P Date: 08/24/24 Chief Complaint: Chest pain 69-year-old female with hyperlipidemia Patient coming in complaining of sudden onset chest pain retrosternal stabbing in nature 10 out of 10 in severity happened all of a sudden while resting doing nothing she reports no associated nausea vomiting sweating diaphoresis shortness of breath palpitations or syncope. She denies any similar episodes in the past she denies any chest pain with activity he claims that she is active in general. She denies any cardiac workup in the past. Denies any recent travel or hospital stay denies any history of blood clots denies any coughing or upper respiratory symptoms denies any fevers chills nausea vomiting or GI bleeding Patient denies tobacco or illicit drugs or heavy alcohol. She does report family history of gallstones denies any premature CAD review of systems Pertinent positives as noted in HPI. All other systems were reviewed and are negative on exam Constitutional: No acute distress, conversant, pleasant Eyes: Anicteric sclerae, moist conjunctiva, Pupils equal round reactive to light ENMT: NC/AT Oropharynx clear, no erythema, or exudates Neck: Supple, no masses, or JVD No carotid bruits No thyromegaly Lungs: Clear to auscultation Clear to percussion Normal respiratory effort, no accessory muscle use Cardiovascular: Heart regular in rate and rhythm, No murmurs, gallops, or rubs No peripheral edema Abdominal: Soft Nontender, no guarding, rebound or rigidity Abdomen moving with respiration Extremities: No digital cyanosis No clubbing Pedal pulses intact and symmetrical Radial pulses intact and symmetrical No calf tenderness Psychiatric: Alert and oriented to person, place and time Appropriate affect fair judgement Neuro Muscles Strength 5/5 in all 4 extremities Sensation to light touch grossly present throughout Cranial nerves II-XII grossly intact Past Medical History Past Medical History: Hyperlipidemia History of Any Multi-Drug Resistant Organisms: None Reported Past Surgical History: No Surgical Hx Reported Past Anesthesia/Blood Transfusion Reactions: No Reported Reaction Past Psychological History: No Psychological Hx Reported Smoking Status: Never smoker Past Alcohol Use History: Rare Past Drug Use History: None Reported Medications and Allergies Allergies Allergy/AdvReac Type Severity Reaction Status Date / Time azithromycin Allergy Nausea & Verified 08/24/24 19:17 Vomiting & Diarrhea sulfamethoxazole Allergy Rash/Hives Verified 08/24/24 19:17 [From ] trimethoprim [From ] Allergy Rash/Hives Verified 08/24/24 19:17 Physical Exam Vitals: Vital Signs Temp Pulse Pulse Resp BP BP Pulse Ox 08/25/24 00:16 97.8 F 63 16 123/72 98 08/24/24 23:53 97.9 F 60 15 130/71 95 08/24/24 19:12 97.8 F 60 18 151/78 97 Intake and Output 08/24/24 08/24/24 08/25/24 14:59 22:59 06:59 Other: Weight 61.689 kg 61.689 kg Results CBC & Chem 7: 08/24/24 22:26 08/24/24 20:16 Labs: Abnormal Lab Results - Last 24 Hours (Table) 08/24/24 Range/Units 20:16 BUN 19 H (7-17) mg/dL AST 37 H (14-36) U/L Thrombosis Risk Factor Assmnt - Choose All That Apply Any of the Below Risk Factors Present?: No Other Risk Factors: Yes Each Risk Factor Represents 2 Points: Arthroscopic surgery Thrombosis Risk Factor Assessment Total Risk Factor Score: 2 Thrombosis Risk Factor Assessment Level: Low Risk Assessment and Plan Assessment: 69-year-old female with hyperlipidemia coming in for sudden onset chest pain and discussed case with ED doctor and accepted the admission for atypical chest pain rule out acute coronary syndrome Atypical chest pain rule out acute coronary syndrome EKG no acute ST changes Troponins negative continue to trend Aspirin 81 mg daily Atorvastatin 20 mg p.o. daily Check lipid panel and A1c Cardiology consult quality assurance monitor chassis Monitor vital signs Normal saline 75 cc/h Nitro sublingual as needed for chest pain Hyperlipidemia Resume statin Full code DVT prophylaxis Lovenox 40 mg subcu daily Tums as needed for stomach upset
[2024-08-25] MEDS: SODIUM CHLORIDE 0.9% 1,000 ML IV SCH (02:32)
[2024-08-25 07:21] VITALS: BP 126/75; PULSE 54; RESP 15; TEMP 97.9
[2024-08-25] MEDS: ASPIRIN 81 MG PO SCH (08:35)
[2024-08-25] MEDS: ENOXAPARIN 40 MG/0.4 ML SYRINGE SQ SCH (08:35)
[2024-08-25] MEDS ORDERED: ASPIRIN 325 MG TAB PO SCH (09:00)
[2024-08-25 09:23] LABS: Chol/HDL Ratio 3.99 Ratio
--- NOTE | 2024-08-25 12:24 | P.CRDCN ---
History of Present Illness Consult date: 08/25/24 Consult reason: chest pain History of present illness: This is a 69-year-old female with no previous cardiac history does not follow with a reimbursement counselor. She has a past medical history of hyperlipidemia. We have been asked to evaluate the patient for chest pain. Patient gives a history that she has been at a restoration retreat and has been getting up at 4:30 in the morning studying. She got up from her writing and went over to the table to do a jigsaw puzzle and developed sharp #10/10 chest pain on the left side. She denies any pain with deep breathing. She has never had this type of pain before. It lasted for couple minutes and has been on and off. No shortness of breath. She is normally active. No dizziness or lightheadedness, no palpitations, no syncopal episodes. She thinks yesterday that her lower extremities had edema but none today. She denies history of smoking no alcohol use. Blood pressure 126/75, heart rate 54, pulse ox 99% on room air. -EKG: Sinus bradycardia with no acute ST-T wave changes. -Chest x-ray: No acute findings. -Gallbladder ultrasound: No acute findings -Laboratory studies: Troponin negative x 3. CBC, INR, CMP unremarkable. Triglycerides 85, cholesterol 243, LDL 165, A1c 5.4. -Home cardiac medications: None -Echocardiogram performed 2020 revealed normal EF Review Of Systems: At the time of my exam: CONSTITUTIONAL: Denies fever or chills. HEENT: Denies blurred vision, vision changes, or eye pain. Denies hemoptysis CARDIOVASCULAR: Denies chest pain. Denies orthopnea. Denies PND. Denies palpitations RESPIRATORY: Denies shortness of breath. GASTROINTESTINAL: Denies abdominal pain. Denies nausea or vomiting. HEMATOLOGIC: Denies bleeding disorders. GENITOURINARY: Denies any blood in urine. SKIN: Denies puritis. Denies rash. Physical examination: Gen: This is a 69-year-old female in no acute distress VS: reviewed HEENT: Head is atraumatic, normocephalic. Pupils equal, round. Sclerae is anicteric. NECK: Supple. No JVD. LUNGS: Clear to auscultation. No wheezes or rhonchi. No intercostal retractions. HEART: Regular rate and rhythm. Systolic murmur. ABDOMEN: Soft No tenderness. EXTREMITIES: No pedal edema. No calf tenderness. NEUROLOGICAL: Patient is awake, alert and oriented x3. Assessment: Atypical chest pain, acute coronary syndrome ruled out Plan: Patient started on a atorvastatin 20 mg daily to be continued Obtain stress echocardiogram Obtain 2-D echocardiogram and Doppler study to assess cardiac structure and function If stress test is unremarkable, patient is cleared for discharge from cardiology perspective. Thank you kindly for this consultation. Nurse practitioner note has been reviewed, I agree with documented findings and plan of care. Patient was seen and examined. Past Medical History Past Medical History: Hyperlipidemia History of Any Multi-Drug Resistant Organisms: None Reported Past Surgical History: No Surgical Hx Reported Past Anesthesia/Blood Transfusion Reactions: No Reported Reaction Past Psychological History: No Psychological Hx Reported Smoking Status: Never smoker Past Alcohol Use History: Rare Past Drug Use History: None Reported Medications and Allergies Home Medications Medication Instructions Recorded Confirmed Type No Known Home Medications 08/25/24 08/25/24 History Allergies Allergy/AdvReac Type Severity Reaction Status Date / Time azithromycin Allergy Nausea & Verified 08/25/24 09:40 Vomiting & Diarrhea sulfamethoxazole Allergy Rash/Hives Verified 08/25/24 09:40 [From ] trimethoprim [From ] Allergy Rash/Hives Verified 08/25/24 09:40 Physical Exam Vitals: Vital Signs Temp Pulse Pulse Resp BP BP Pulse Ox 08/25/24 07:00 97.9 F 54 L 15 126/75 99 08/25/24 00:16 97.8 F 63 16 123/72 98 08/24/24 23:53 97.9 F 60 15 130/71 95 08/24/24 19:12 97.8 F 60 18 151/78 97 Intake and Output 08/24/24 08/25/24 08/25/24 22:59 06:59 14:59 Other: # Voids 1 Weight 61.689 kg 61.689 kg Results 08/24/24 22:26 08/24/24 20:16 Cardiac Enzymes 08/24/24 08/24/24 08/25/24 Range/Units 20:16 20:16 00:00 AST 37 H (14-36) U/L Troponin I 0.028 <0.012 (0.000-0.034) ng/mL 08/25/24 Range/Units 02:32 AST (14-36) U/L Troponin I <0.012 (0.000-0.034) ng/mL Coagulation 08/24/24 Range/Units 20:16 PT 11.1 (10.0-12.5) sec APTT 22.2 (22.0-30.0) sec CBC 08/24/24 Range/Units 22:26 WBC 3.9 (3.8-10.6) k/uL RBC 3.85 (3.80-5.40) m/uL Hgb 11.8 (11.4-16.0) gm/dL Hct 36.2 (34.0-46.0) % Plt Count 224 (150-450) k/uL Comprehensive Metabolic Panel 08/24/24 Range/Units 20:16 Sodium 137 (137-145) mmol/L Potassium 4.4 (3.5-5.1) mmol/L Chloride 101 (98-107) mmol/L Carbon Dioxide 27 (22-30) mmol/L BUN 19 H (7-17) mg/dL Creatinine 0.68 (0.52-1.04) mg/dL Glucose 75 (74-99) mg/dL Calcium 9.3 (8.4-10.2) mg/dL AST 37 H (14-36) U/L ALT 23 (4-34) U/L Alkaline Phosphatase 57 (38-126) U/L Total Protein 7.2 (6.3-8.2) g/dL Albumin 4.5 (3.5-5.0) g/dL Current Medications Generic Name Dose Route Start Last Admin Trade Name Freq PRN Reason Stop Dose Admin Aspirin 81 mg 08/25/24 09:00 Aspirin 81 Mg PO DAILY [facility] Atorvastatin Calcium 20 mg 08/25/24 21:00 Atorvastatin 20 Mg Tab PO HS [facility] Calcium Carbonate/Glycine 500 mg 08/25/24 02:04 Calcium Carbonate 500 Mg Chewable PO QID PRN Heartburn Enoxaparin Sodium 40 mg 08/25/24 09:00 Enoxaparin 40 Mg/0.4 Ml Syringe SQ DAILY [facility] Sodium Chloride 1,000 mls @ 75 mls/hr 08/25/24 02:15 08/25/24 02:32 Saline 0.9% IV 75 mls/hr .[id number] GILMER Administration Nitroglycerin 0.4 mg 08/24/24 23:18 Nitroglycerin Sl Tabs 0.4 Mg Tab SUBLINGUAL Q5M PRN Chest Pain Intake and Output 08/24/24 08/25/24 08/25/24 22:59 06:59 14:59 Other: # Voids 1 Weight 61.689 kg 61.689 kg 08/24/24 22:26 08/24/24 20:16
--- NOTE | 2024-08-25 13:20 | CA ---
Stress Echo Report Vladislav Miller Age: 69 Gender: F : 1955 Exam Date: 08/25/2024 11:29 Exam Location: [facility] Ht (in): 64 Wt (lb): 136 Ordering Physician: Nuha Adler Referring Physician: [id number] Burlap Bag Sewer: Kristen Younger RDCS Technologist Procedure CPT: Indication: Chest Pain ICD-9 Codes: Rhythm: Patient History: Cardiac Medications: SEE CHART,,, Medications in past 24 hours: Contrast: Definity Stress Results Protocol: Ruiz Total dose(mL): 2 Exercise Duration (min:sec): 6:[address] Depression (mm): Angina Score: Matthews Score: METS: 8.3 Resting HR: 76 Resting BP: 118 / 70 Peak HR: 151 Peak BP: 191 / 71 Max Predicted HR: 152 99 % Max Predicted HR Target HR: 129 Double Product: 90043 Stress Summary: BP Response: Reason for Termination: TARGET HR REACHED/MAX EXERTION Cardiac Symptoms: NO SYMPTOMS ECG Analysis Resting ECG: Normal sinus rhythm, normal ECG Stress ECG: No abnormal ST/T wave changes with exercise Arrhythmia: None Echo Analysis Resting Echo: Normal resting echocardiogram. Peak Echo Analysis: Normal wall thickening and motion MEASUREMENTS (Male/Female) Normal Values CONCLUSIONS 1. Average exercise tolerance with normal electrocardiographic response to exercise 2. Normal stress echocardiogram with no evidence of stress- induced ischemia Dr. Gilberto Boothe MD (Electronically Signed) Final Date: 25 August 2024 13:19
--- NOTE | 2024-08-25 13:23 | CA ---
Transthoracic Echo Report Name: Vladislav Miller Age: 69 Gender: F : 1955 Exam Date: 08/25/2024 07:36 Exam Location: [facility] Ht (in): 64 Wt (lb): 136 Ordering Physician: Marcelino Hawkins Attending/Referring Phys: [id number], Ross Security Engineer London Guerrero, RDNOAH Procedure CPT: Indications: Chest Pain Cardiac Hx: Technical Quality: Good Contrast 1: Total Dose (mL): Contrast 2: Total Dose (mL): MEASUREMENTS (Male / Female) Normal Values 2D ECHO LV Diastolic Diameter PLAX 3.5 cm 4.2 - 5.9 / 3.9 - 5.3 cm LV Systolic Diameter PLAX 2.4 cm IVS Diastolic Thickness 1.0 cm 0.6 - 1.0 / 0.6 - 0.9 cm LVPW Diastolic Thickness 0.9 cm 0.6 - 1.0 / 0.6 - 0.9 cm LV Relative Wall Thickness 0.5 RV Internal Dim ED PLAX 3.4 cm LVOT Diameter 1.5 cm Aortic Root Diameter 2.9 cm LA Systolic Diameter LX 2.9 cm 3.0 - 4.0 / 2.7 - 3.8 cm DOPPLER AI Peak Velocity 317.4 cm/s AI Peak Gradient 40.3 mmHg AI Pressure Half Time 599.0 ms Mitral E Point Velocity 108.5 cm/s Mitral A Point Velocity 91.2 cm/s Mitral E to A Ratio 1.2 MV Deceleration Time 191.2 ms MV E' Velocity 8.7 cm/s Mitral E to MV E' Ratio 12.4 TR Peak Velocity 149.9 cm/s TR Peak Gradient 9.0 mmHg Right Atrial Pressure 5.0 mmHg Pulmonary Artery Systolic Pressu 14.0 mmHg Right Ventricular Systolic Press 14.0 mmHg FINDINGS Left Ventricle Left ventricular ejection fraction is estimated at 55-60 %. Normal left ventricular systolic function with no obvious regional wall motion abnormalities. Left ventricular wall thickness normal. Right Ventricle Mild right ventricular dilatation. Right ventricular systolic pressure within normal limits. Right Atrium Mild right atrial dilatation. Left Atrium Normal left atrial size. Mitral Valve Moderate mitral annular calcification. No mitral stenosis. Mild to moderate mitral regurgitation. Aortic Valve Trileaflet aortic valve. No aortic stenosis. Mild aortic regurgitation. Tricuspid Valve Structurally normal tricuspid valve. No tricuspid stenosis. Mild tricuspid regurgitation. Pulmonic Valve Structurally normal pulmonic valve. No pulmonic stenosis. No pulmonic regurgitation. Pericardium No pericardial effusion. Aorta Normal size aortic root and proximal ascending aorta. CONCLUSIONS 1. Normal left ventricular size and systolic function 2. Mild to moderate mitral regurgitation 3. Mild aortic and tricuspid regurgitation Previewed by: Dr. Gilberto Boothe MD (Electronically Signed) Final Date: 25 August 2024 13:22
--- NOTE | 2024-08-25 15:57 | P.DS ---
Providers Date of admission: 08/24/24 23:20 Expected date of discharge: 08/25/24 Attending physician: Darrell Liriano MD Consults: 08/24/24 23:18 Consult Physician Urgent Consulting Provider: Abdifatah Conde Consult Reason/Comments: chest pain Do you want consulting provider notified?: Yes [facility] Course: 69 year old F with no PMH presents to the ED for chest pain. In the ED she underwent extensive evaluation. BP 151/78, HR 60, RR 18, T 97.8F, 97% on RA. CBC, Coag panel, CMP significant for BUN 19, AST 37. Trop 0.028, < 0.012 x 2. Lipid panel T. Chol 243, LDL 165. EKG NSR. GB US no acute process. CXR no acute process. Cardiology consulted, recommended stress test. Echo normal EF and LV size, mild-mod MR, mild AR/TR. Stress Echo negative. Cleared for discharge. 08/25 Patient was seen and examined. No chest pain. Discharge Plan: Prescription for ASA, Lipitor sent to pharmacy. General: non toxic, moderate distress, appears at stated age Derm: warm, dry Head: atraumatic, normocephalic, symmetric Eyes: EOMI, no lid lag, anicteric sclera Mouth: no lip lesion, mucus membranes moist Cardiovascular: S1S2 reg, no murmur Lungs: CTA bilateral, no rhonchi, no rales , no accessory muscle use Ext: no gross muscle atrophy, no edema, no contractures Neuro: no focal neuro deficits Psych: Alert and oriented. Discharge Diagnosis: Atypical chest pain Dyslipidemia Transaminitis This complex discharge took 35 minutes to complete. Patient Condition at Discharge: Stable Plan - Discharge Summary New Discharge Prescriptions: New Aspirin 81 mg PO DAILY #30 tab Atorvastatin [Lipitor] 20 mg PO HS #30 tab Calcium Carbonate [Tums] 500 mg PO QID PRN tab PRN Reason: Heartburn Discharge Medication List Aspirin 81 mg PO DAILY #30 tab 08/25/24 [Rx] Atorvastatin [Lipitor] 20 mg PO HS #30 tab 08/25/24 [Rx] Calcium Carbonate [Tums] 500 mg PO QID PRN tab 08/25/24 [Rx] Follow up Appointment(s)/Referral(s): Brown Garcia DO [Primary Care Provider] - 1-2 days Discharge Disposition: HOME SELF-CARE
[2024-08-25] MEDS ORDERED: ATORVASTATIN 20 MG TAB PO SCH (21:00)
== END 2024-08-25 14:45 | disposition home or self-care (01) ==
LOC: EC 18:58 → 6NMEDSUR 23:20
PROVIDERS: ADMIT Internal Medicine; ATTEND Internal Medicine
DX: R07.89 Other chest pain (principal); E78.5 Hyperlipidemia, unspecified; R74.01 Elevation of levels of liver transaminase levels; R00.1 Bradycardia, unspecified; M25.511 Pain in right shoulder; M54.9 Dorsalgia, unspecified; Z88.2 Allergy status to sulfonamides; Z88.1 Allergy status to other antibiotic agents
CPT/HCPCS: 99285; 36415; 93005 ×2; 93306; 83880; 80061; 80053; 83735; 84484 ×2; 85025; 85610; 85730; 83036; 71046; 76705; G0378 ×2; C8930; Q9957; 93351